=== PATIENT | female | born 1960 | race American Indian/Alaskan Native ===

== ENCOUNTER 2021-12-11 05:56 | Day surgery (SDC) | payer MEDICARE ==
[2021-12-06 09:33] LABS: Mean Corpuscular HGB Conc 31 % (30-34); Mean Corpuscular Volume 74 fl (79-97); Platelet Count 276 K/mm3 (140-440); Red Blood Count 5.33 M/mm3 (3.65-5.03); Red Cell Distribution Width 15.7 % (13.2-15.2)
[2021-12-06 09:34] LABS: Hematocrit 39.5 % (30.3-42.9); Hemoglobin 12.1 gm/dl (10.1-14.3)
[2021-12-06 09:59] LABS: Alanine Aminotransferase 15 units/L (7-56); Albumin 4.1 g/dL (3.9-5); Blood Urea Nitrogen 11 mg/dL (7-17); Calcium 9.3 mg/dL (8.4-10.2); Hemolysis Index 0
[2021-12-06 10:00] LABS: BUN/Creatinine Ratio 18
[2021-12-11] MEDS ORDERED: LACTATED RINGERS 1,000 ML ONE ×2 (06:40→09:51)
[2021-12-11 07:00] VITALS: BP 162/81
[2021-12-11] MEDS ORDERED: HYDROmorphone 1 MG/1 ML INJ IV PRN ×2 (07:30→08:00)
[2021-12-11] MEDS ORDERED: CELECOXIB 200 MG CAP PO NR (07:30)
[2021-12-11] MEDS ORDERED: MAGNESIUM OXIDE 400 MG TAB PO SCH (07:30)
[2021-12-11] MEDS ORDERED: BUPIVACAINE/PF (0.5%) 5 MG/1 ML 30 ML VIAL INFILTRATI ONE ×2 (07:32→10:03)
[2021-12-11] MEDS ORDERED: LIDOCAINE (1%) 10 MG/1 ML VIAL 20 ML MDV ONE (07:32)
[2021-12-11] MEDS ORDERED: ACETAMINOPHEN 500 MG TAB ONE (07:33)
[2021-12-11] MEDS ORDERED: CELECOXIB 200 MG CAP ONE (07:34)
[2021-12-11] MEDS ORDERED: ACETAMINOPHEN 500 MG TAB PO SCH (07:34)
[2021-12-11] MEDS ORDERED: MAGNESIUM OXIDE 400 MG TAB PO ONE (07:34)
--- NOTE | 2021-12-11 07:36 | Anesthesia Day of Surgery ---
Anesthesia Day of Surgery - Day of Surgery Patient Examined: Yes Patient H&P Reviewed: Yes Patient is NPO: Yes
--- NOTE | 2021-12-11 07:37 | Anesthesia Consultation ---
Anesthesia Consult and Med Hx Date of service: 12/11/21 - Airway Anesthetic Teeth Evaluation: Good, Bridges ROM Head & Neck: Adequate Mental/Hyoid Distance: Adequate Mallampati Class: Class III Intubation Access Assessment: Probably Good - Pre-Operative Health Status ASA Pre-Surgery Classification: ASA2 Proposed Anesthetic Plan: General - Pulmonary Hx Smoking: No Hx Respiratory Symptoms: No (+2FS) Hx Sleep Apnea: No (DEE PRE SCREEN HIGH RISK) - Cardiovascular System Hx Hypertension: Yes - Central Nervous System Hx Neuromuscular Disorder: Yes (Gout) Hx Back Pain: Yes Hx Psychiatric Problems: No - Gastrointestinal Hx Gastroesophageal Reflux Disease: Yes (Occasional) - Endocrine Hx Non-Insulin Dependent Diabetes: Yes (Diet-controlled) - Hematic Hx Anemia: No Hx Sickle Cell Disease: No - Other Systems Hx Alcohol Use: Yes (Q SAT 1 DRINK) Hx Substance Use: No Hx Cancer: No Hx Obesity: Yes
[2021-12-11] MEDS ORDERED: ROCURONIUM 50 MG/5 ML INJ IV ONE (07:42)
[2021-12-11] MEDS ORDERED: LIDOCAINE MPF (2%) 20 MG/1 ML VIAL 5 ML ONE (07:42)
[2021-12-11] MEDS ORDERED: propofoL 200 MG/20 ML VIAL IV ONE (07:43)
[2021-12-11] MEDS ORDERED: LACTATED RINGERS 1,000 ML IV SCH (08:00)
[2021-12-11] MEDS ORDERED: ceFAZolin/Water 2 GM/20 ML 2 GM/20 ML SYRINGE IV NR (08:00)
[2021-12-11] MEDS ORDERED: ONDANSETRON 4 MG/2 ML INJ IV PRN (08:00)
[2021-12-11] MEDS ORDERED: dexAMETHasone 20 MG/5 ML VIAL ONE (08:20)
[2021-12-11] MEDS ORDERED: GLYCOPYRROLATE 0.4 MG/2 ML INJ ONE (09:49)
[2021-12-11] MEDS ORDERED: NEOSTIGMINE 10MG/10 ML INJ MDV ONE (09:49)
[2021-12-11] MEDS ORDERED: LIDOCAINE (1%) 10 MG/1 ML VIAL 20 ML MDV INFILTRATI ONE (10:03)
--- NOTE | 2021-12-11 10:14 | Short Stay Summary ---
Short Stay Documentation Date of service: 12/11/21 - History Principal diagnosis: Symptomatic cholelithiasis H&P: obtained from office - Allergies and Medications Current Medications: Allergies No Known Allergies Allergy (Verified 12/05/21 17:13) Home Medications Medication Instructions Recorded Confirmed Last Taken Type Atorvastatin Calcium 40 mg PO DAILY 12/05/21 12/05/21 Unknown History Losartan Potassium 100 mg PO DAILY 12/05/21 12/05/21 Unknown History allopurinoL [Zyloprim] 300 mg PO QDAY 12/05/21 12/05/21 Unknown History cloNIDine-TTS PATCH [Catapres-Tts 1 patch TD Q7D 12/05/21 12/05/21 Unknown History 0.2mg Patch] Active Medications Acetaminophen (Acetaminophen 500 Mg Tab) 1,000 mg PO PREOP TIMUR Stop: 12/11/21 21:00 Celecoxib (Celecoxib 200 Mg Cap) 400 mg PO PREOP NR Stop: 12/11/21 21:00 Hydromorphone HCl (Hydromorphone 1 Mg/1 Ml Inj) 0.25 mg IV Q10MIN PRN PRN Reason: Pain, Moderate (4-6) Stop: 12/11/21 18:00 Hydromorphone HCl (Hydromorphone 1 Mg/1 Ml Inj) 0.5 mg IV Q10MIN PRN PRN Reason: Pain , Severe (7-10) Stop: 12/11/21 17:00 Cefazolin Sodium (Ancef/Sterile Water 2 Gm/20 Ml) 2 gm in 20 mls @ 80 mls/hr IV PREOP NR; Protocol Stop: 12/11/21 23:59 Lactated Ringer's (Lactated Ringers) 1,000 mls @ 125 mls/hr IV DIRECT TIMUR Magnesium Oxide (Magnesium Oxide 400 Mg Tab) 400 mg PO PREOP TIMUR Stop: 12/11/21 21:00 Methocarbamol (Methocarbamol 750 Mg Tab) 1,500 mg PO PREOP TIMUR Stop: 12/11/21 21:00 Ondansetron HCl (Ondansetron 4 Mg/2 Ml Inj) 4 mg IV ONCE PRN PRN Reason: Nausea And Vomiting Stop: 12/11/21 19:00 - Brief post op/procedure progress note Date of procedure: 12/11/21 Pre-op diagnosis: Calculus of gallbladder without cholecystitis or obstruction Post-op diagnosis: same Procedure: Robotic assisted cholecystectomy Anesthesia: GETA, local Findings: DISTENDED GALLBLADDER WITH STONES Surgeon: DRE GARDNER Container Filler: VIVEK JARAMILLO Estimated blood loss: minimal Pathology: list (Gallbladder) Specimen disposition: to lab Condition: stable - Hospital course Hospital course: Patient observed in PACU and discharged home in stable condition when criteria met - Disposition Condition at discharge: Good Disposition: 01 HOME / SELF CARE / HOMELESS Short Stay Discharge Plan Activity: no restrictions Diet: regular Wound: open to air, per your surgeon's advice Additional Instructions: See printed discharge instructions Follow up with: XANDER CURTIS MD [Primary Care Provider] - 7 Days DRE GARDNER DO [Staff Physician] - 14 Days Prescriptions: Ibuprofen [Motrin] 800 mg PO Q8HR PRN #30 tablet PRN Reason: Pain, Moderate (4-6) HYDROcodone/APAP 5-325 [[place] 5/325] 1 each PO Q6H PRN #20 tablet PRN Reason: Pain , Severe (7-10)
--- NOTE | 2021-12-11 10:15 | Operative Report ---
Operative Report Operative Report: Date of procedure: 12/11/21 Pre-op diagnosis: Calculus of gallbladder without cholecystitis or obstruction Post-op diagnosis: same Procedure: Robotic assisted cholecystectomy Anesthesia: GETA, local Findings: DISTENDED GALLBLADDER WITH STONES Surgeon: DRE GARDNER Plaque Maker: VIVEK JARAMILLO Estimated blood loss: minimal Pathology: list (Gallbladder) Specimen disposition: to lab Condition: stable Hospital course: Patient observed in PACU and discharged home in stable condition when criteria met HPI an indication: 61-year-old female who presented to the surgery clinic with complaints of intermittent sharp right upper quadrant abdominal pain. CT scan revealed cholelithiasis. Patient symptoms were consistent with symptomatic cholelithiasis. It was recommended that the patient undergo cholecystectomy. All risks, benefits, alternatives to surgery were discussed in detail and questions answered. Consent was obtained for laparoscopic, possible open cholecystectomy, possible cholangiogram. Procedure in detail: The patient was identified in the preoperative area and taken back to the operating room, placed on the operating room table in supine position. After anesthesia was induced, the abdomen was prepped and draped in usual sterile fashion and timeout was performed. Local anesthetic was infiltrated into all of the skin incision sites. A supraumbilical incision was made through which a Veress needle was inserted. The Veress needle positioning was confirmed with saline drop test and the abdomen insufflated to 15 mmHg without incident. The Veress needle was then removed and a 5 mm Optiview trocar placed through this incision. The abdomen was inspected and there was no underlying injury to any of the abdominal structures. The patient was placed in reverse Trendelenburg and tilted to the left A right lateral 8 mm (arm2) robotic trocar was placed under direct visualization. Two 8 mm robotic trocars were placed in the left mid (arm 1) and lateral (arm 3) abdomen respectively. The 5 mm port was removed and replaced with a 12 mm balloon trocar. A Ray-Jonathan was placed into the abdomen. The robot was then docked. A monopolar hook was placed in arm 1, a prograsp in arm 3, and a Caudier grasper in arm 2. The surgeon was then transferred to the console. The gallbladder was mildly distended and the fundus was retracted cephalad and above the liver. The neck of the gallbladder was dissected using hook electrocautery and blunt dissection. A dome down approach was then taken. The gallbladder was dissected from the liver bed using the hook in an avascular plane. The cystic duct and artery were carefully skeletonized. The cystic duct and artery were the only 2 structures seen entering the gallbladder and the critical view was successfully obtained. 2 weck clips were placed on the proximal aspect of the cystic duct and 1 distally and this was transected in between the clips using EndoShears by the assistant at surgery surgeon. 1 weck clip was placed on the proximal aspect of the cystic artery and this was transected distal to the clip using hook electrocautery. The robot was then undocked and the surgeon scrubbed back in. The remainder of the case was performed laparoscopically. The gallbladder was placed into a Endo Catch bag and removed from the abdomen via the 12mm port. The gallbladder contained a medium size stone. The gallbladder fossa was then inspected and there was no identifiable bleeding or bile leakage. Hemostasis was ensured. The clips on the cystic duct and artery were visualized and intact. The patient was then placed into neutral position. The 12 mm port fascia was closed with interrupted 0 Vicryl suture using the Adonay Rouse device. The remaining ports were removed under direct visualization. Skin incisions were closed with 4-0 Monocryl subcuticular stitches and skin glue. All skin incisions were once again infiltrated with local anesthetic. At the end case all sponge, instrument, sharp counts were correct 2. The patient was awoken from anesthesia, extubated, and taken to PACU in stable condition.
[2021-12-11] MEDS ORDERED: HYDROcodone/ACETAMINOPHEN 5-325 MG TAB ONE (10:36)
== END 2021-12-11 05:57 | disposition home or self-care (01) ==
LOC: OR 05:56 → EDBD 08:00
PROVIDERS: ATTEND Surgery
DX: K80.10 Calculus of gallbladder with chronic cholecystitis without obstruction (principal); I10 Essential (primary) hypertension; E11.9 Type 2 diabetes mellitus without complications; K21.9 Gastro-esophageal reflux disease without esophagitis; M10.9 Gout, unspecified; E66.9 Obesity, unspecified; E78.00 Pure hypercholesterolemia, unspecified; M19.90 Unspecified osteoarthritis, unspecified site; Z87.440 Personal history of urinary (tract) infections; Z79.899 Other long term (current) drug therapy; Z98.890 Other specified postprocedural states; Z68.36 Body mass index [BMI] 36.0-36.9, adult; Z20.822 Contact with and (suspected) exposure to COVID-19
CPT/HCPCS: 36415; 47562; 80053; 82962; 85027; 88304; J0690; J1100; J1170; J1815; J2405; J2704; J2710; J3490; J7120; U0003